=== PATIENT | female | born 1950 | race Hispanic/Latino ===

== ENCOUNTER 2018-05-30 11:49 | Emergency (ER) | payer OTHER ==
[~2018-05-30] VITALS: Ht 157.5 cm; Wt 81.6 kg
== END 2018-05-30 13:43 | disposition home or self-care (01) ==
LOC: FSED 11:49
DX: M54.6 Pain in thoracic spine (principal); M54.5 Low back pain; M62.830 Muscle spasm of back; I10 Essential (primary) hypertension
CPT/HCPCS: 99283

== ENCOUNTER → 2021-06-25 | Outpatient (CLI) | payer MEDICARE | LOC: RAD 16:03 | PROVIDERS: ATTEND Family Medicine | DX: Z01.810 Encounter for preprocedural cardiovascular examination (principal) | CPT/HCPCS: 71046 ==